=== PATIENT | female | born 1985 | race Two or more races ===

== ENCOUNTER 2018-05-10 18:57 | Observation (INO) | payer MEDICAID, OTHER | END 2018-05-10 20:00 | disposition home or self-care (01) | DRG 566 | LOC: LDRP 18:57 | PROVIDERS: ADMIT Specialist; ATTEND Specialist | DX: O62.9 Abnormality of forces of labor, unspecified (principal); Z3A.35 35 weeks gestation of pregnancy | CPT/HCPCS: 59025; 81002; 82948; 82962; G0378 ==

== ENCOUNTER 2018-05-15 11:05 | Observation (INO) | payer MEDICAID ==
[2018-05-15] MEDS ORDERED: PREN-153 OR (11:19)
== END 2018-05-15 12:35 | disposition home or self-care (01) | DRG 566 ==
LOC: LDRP 11:05
PROVIDERS: ADMIT Specialist; ATTEND Specialist
DX: O26.893 Other specified pregnancy related conditions, third trimester (principal); M54.9 Dorsalgia, unspecified; M79.605 Pain in left leg; R10.2 Pelvic and perineal pain; Z3A.36 36 weeks gestation of pregnancy
CPT/HCPCS: 59025; 81002; G0378

== ENCOUNTER 2018-05-15 12:41 | Emergency (ER) | payer MEDICAID ==
[~2018-05-15] VITALS: Ht 157.5 cm; Wt 90.7 kg
[~2018-05-15 12:41] MED LIST: PREN-153 OR
[2018-05-15 13:48] VITALS: BP 120/87
[2018-05-15] MEDS ORDERED: ACETAMINOPHEN/CODEINE#3 (300/30mg) TAB PO ONE (14:30)
[2018-05-15] MEDS ORDERED: diphenhdrAMINE HCL 50 MG/1 ML VL IM ONE (15:30)
== END 2018-05-15 16:11 | disposition home or self-care (01) ==
LOC: ER 12:41
DX: O26.893 Other specified pregnancy related conditions, third trimester (principal); M54.42 Lumbago with sciatica, left side; Z3A.36 36 weeks gestation of pregnancy; X50.1XXA Overexertion from prolonged static or awkward postures, initial encounter; Y93.01 Activity, walking, marching and hiking; Y92.89 Other specified places as the place of occurrence of the external cause; Y99.8 Other external cause status
CPT/HCPCS: 96372; 99283; J1200

== ENCOUNTER 2018-05-18 13:59 | Observation (INO) | payer MEDICAID ==
[2018-05-18] MEDS ORDERED: LACTATED RINGER'S 1,000 ML IV ONE (17:15)
[2018-05-18 18:15] LABS: Urine Bacteria FEW /hpf (None Seen); Urine Blood Negative /uL (Negative); Urine Mucus FEW (None Seen); Urine WBC 1 /hpf (0 - 5)
[2018-05-18 18:16] LABS: Basophils # (auto) 0 uL; Basophils % (auto) 0.3 % (0.0-2.0); Eosinophils # (auto) 0 uL; Eosinophils % (auto) 0.4 % (0.0-7.0); Hematocrit 34.8 % (36.0-46.0); Lymphocytes # (auto) 2.1 uL; Lymphocytes % (auto) 20.8 % (10.0-50.0); Mean Corpuscular Hemoglobin 31.2 pg (28.0-32.0); Mean Corpuscular Hgb Conc. 34.5 g/dL (32.0-36.0); Mean Corpuscular Volume 90.4 fL (80.0-100.0); Monocytes # (auto) 0.8 uL; Monocytes % (auto) 8.2 % (0.0-12.0); Neutrophils # (auto) 7.2 uL; Neutrophils % (auto) 70.3 % (37.0-80.0); Nucleated Red Blood Cells % 0.1 %; Platelet Count (auto) 290 10^3/uL (140-450); Red Blood Cells 3.85 10^6/uL (4.0-5.20); Red Cell Distribution Width 14.4 % (11.8-14.3); White Blood Cell 10.3 10^3/uL (4.4-10.8)
[2018-05-18 18:30] LABS: Alcohol, Urine < 3.0 mg/dL (0-5); Amphetamine Screen, Urine NEGATIVE (NEGATIVE); Barbiturate Scree,Urine NEGATIVE (NEGATIVE); Benzodiazephine Screen, Urine NEGATIVE (NEGATIVE); Cannabinoid Screen, Urine NEGATIVE (NEGATIVE); Cocaine Screen, Urine NEGATIVE (NEGATIVE); Opiate Scree,Urine NEGATIVE (NEGATIVE); Phencyclidine Screen, Urine NEGATIVE (NEGATIVE)
[2018-05-18 18:30] LABS: Albumin 2.4 g/dL (3.4-5.0); Calcium 8.8 mg/dL (8.5-10.1); Potassium 4.1 mmol/L (3.5-5.1)
[2018-05-18 18:33] LABS: BUN/Creatinine Ratio 15.5; Bilirubin, Total 0.3 mg/dL (0.2-1.0); Uric Acid 3.3 mg/dL (2.6-6.0)
[2018-05-18 18:37] LABS: INR 0.89 (0.9-1.15); Prothrombin Time 9.6 sec (9.27-12.13)
== END 2018-05-18 21:00 | disposition home or self-care (01) | DRG 566 ==
LOC: LDRP 13:59
PROVIDERS: ADMIT Specialist; ATTEND Specialist
DX: O24.419 Gestational diabetes mellitus in pregnancy, unspecified control (principal); Z3A.00 Weeks of gestation of pregnancy not specified
CPT/HCPCS: 36415; 59025; 76818; 80053; 80307; 81001; 81002; 82948; 82962; 84550; 85025; 85610; 85730; 93005; G0378; 96361; 96366

== ENCOUNTER 2018-05-20 08:05 | Observation (INO) | payer MEDICAID ==
[2018-05-20] MEDS ORDERED: LABE100T4 PO (08:52)
== END 2018-05-20 10:35 | disposition home or self-care (01) | DRG 566 ==
LOC: LDRP 08:05
PROVIDERS: ADMIT Specialist; ATTEND Specialist
DX: O24.410 Gestational diabetes mellitus in pregnancy, diet controlled (principal); O26.893 Other specified pregnancy related conditions, third trimester; H53.8 Other visual disturbances; R03.0 Elevated blood-pressure reading, without diagnosis of hypertension; O99.89 Other specified diseases and conditions complicating pregnancy, childbirth and the puerperium; M54.30 Sciatica, unspecified side; Z3A.37 37 weeks gestation of pregnancy
CPT/HCPCS: 59025; 76818; 81002; 82948; 82962; G0378

== ENCOUNTER 2018-05-22 08:20 | Observation (INO) | payer MEDICAID ==
[~2018-05-22 08:20] MED LIST changes: +LABE100T4 PO
[2018-05-22 09:15] LABS: Protein, Urine 17.3 mg/dL (0.0-11.9)
[2018-05-22 09:17] LABS: 24 Hr. Total Protein, Urine 224.9 mg/24 Hr (<149.1)
== END 2018-05-22 09:35 | disposition home or self-care (01) | DRG 566 ==
LOC: LDRP 08:20
PROVIDERS: ADMIT Specialist; ATTEND Specialist
DX: O24.419 Gestational diabetes mellitus in pregnancy, unspecified control (principal); Z3A.37 37 weeks gestation of pregnancy
CPT/HCPCS: 59025; 81002; 82948; 82962; 84156; G0378

== ENCOUNTER 2018-05-24 10:50 | Observation (INO) | payer MEDICAID ==
[~2018-05-24] VITALS: Ht 157.5 cm; Wt 92.5 kg
== END 2018-05-24 12:20 | disposition home or self-care (01) | DRG 566 ==
LOC: LDRP 10:50
PROVIDERS: ADMIT Specialist; ATTEND Specialist
DX: O13.3 Gestational [pregnancy-induced] hypertension without significant proteinuria, third trimester (principal); Z3A.37 37 weeks gestation of pregnancy
CPT/HCPCS: 59025; 76818; 81002; 82948; 82962; G0378

== ENCOUNTER 2018-05-28 09:10 | Observation (INO) | payer MEDICAID ==
[2018-05-28 10:25] LABS: Basophils # (auto) 0 uL; Basophils % (auto) 0.5 % (0.0-2.0); Eosinophils # (auto) 0.1 uL; Eosinophils % (auto) 0.8 % (0.0-7.0); Hematocrit 35.1 % (36.0-46.0); Lymphocytes # (auto) 1.8 uL; Lymphocytes % (auto) 21.6 % (10.0-50.0); Mean Corpuscular Hemoglobin 30.7 pg (28.0-32.0); Mean Corpuscular Hgb Conc. 34.1 g/dL (32.0-36.0); Mean Corpuscular Volume 89.8 fL (80.0-100.0); Monocytes # (auto) 0.5 uL; Monocytes % (auto) 6.2 % (0.0-12.0); Neutrophils # (auto) 5.9 uL; Neutrophils % (auto) 70.9 % (37.0-80.0); Nucleated Red Blood Cells % 0.1 %; Platelet Count (auto) 287 10^3/uL (140-450); Red Blood Cells 3.91 10^6/uL (4.0-5.20); Red Cell Distribution Width 14.4 % (11.8-14.3); White Blood Cell 8.3 10^3/uL (4.4-10.8)
[2018-05-28 10:37] LABS: Albumin 2.5 g/dL (3.4-5.0); Calcium 8.7 mg/dL (8.5-10.1); Potassium 3.8 mmol/L (3.5-5.1)
[2018-05-28 10:39] LABS: BUN/Creatinine Ratio 11.1
[2018-05-28 10:40] LABS: INR 0.87 (0.9-1.15); Partial Thromboplastin Time 26.1 sec (23.78-33.04); Prothrombin Time 9.4 sec (9.27-12.13)
[2018-05-28 11:42] LABS: Urine Bacteria MOD /hpf (None Seen); Urine Blood Negative /uL (Negative); Urine Mucus FEW (None Seen); Urine Specific Gravity 1.021 (1.001-1.035); Urine WBC 23 /hpf (0 - 5)
[2018-05-28 11:52] LABS: Bilirubin, Total 0.3 mg/dL (0.2-1.0); Total Protein 6.2 g/dL (6.4-8.2)
== END 2018-05-28 11:40 | disposition home or self-care (01) | DRG 566 ==
LOC: LDRP 09:10
PROVIDERS: ADMIT Obstetrics & Gynecology; ATTEND Obstetrics & Gynecology
DX: O24.419 Gestational diabetes mellitus in pregnancy, unspecified control (principal); O13.3 Gestational [pregnancy-induced] hypertension without significant proteinuria, third trimester; Z3A.38 38 weeks gestation of pregnancy
CPT/HCPCS: 36415; 59025; 76818; 80053; 81001; 81002; 84550; 85025; 85610; 85730; G0378

== ENCOUNTER 2018-05-30 21:32 | Inpatient (IN) | payer MEDICAID | END 2018-06-01 19:00 | disposition home or self-care (01) | LOC: LDRP 21:32 | PROC: 10E0XZZ Delivery of Products of Conception, External Approach (ICD-10-PCS; principal; ~2018-05-30) | DX: O24.429 Gestational diabetes mellitus in childbirth, unspecified control (principal); Z37.0 Single live birth; Z3A.38 38 weeks gestation of pregnancy ==

== ENCOUNTER → 2018-07-26 | Day surgery (SDC) | payer MEDICAID ==
[~2018-07-26] VITALS: Ht 157.5 cm; Wt 83.0 kg
[~2018-07-26] MED LIST changes: +GLYCOPYRROLATE 0.2 MG/ML 1ML VIAL ONE; +KETOROLAC TROMETH 60MG/2ML VIAL IM ONE; -LABE100T4 PO; +LACTATED RINGER'S 1,000 ML IV SCH; +MEPERIDINE HCL (25 MG/ML) 1ML VIAL ONE; +MIDAZOLAM HCL 1MG/1ML-2 ML VIAL ONE; +NEOSTIGMINE 1 MG/ML INJ (10mg/10ML VIAL) ONE; +ONDANSETRON HCL 4 MG/2 ML VIAL IV PRN; -PREN-153 OR; +PROPOFOL 10 MG/ML 20 ML IV ONE; +ROCURONIUM 10MG/ML 10ML VIAL IV ONE; +SODIUM CHLORIDE LOCK 10 ML ONE; +SUCCINYLCHOLINE CHLORIDE 20 MG/ML 10ML VIAL IV ONE; +ceFAZolin 1GM/50ML 50 ML IV ONE; +diphenhdrAMINE HCL 50 MG/1 ML VL ONE; +fentaNYL CITRATE 100 MCG/2 ML VL ONE
[2018-07-26 11:02] VITALS: BP 139/80
== END | disposition home or self-care (01) ==
LOC: SUR 08:02
PROVIDERS: ATTEND Obstetrics & Gynecology
DX: Z30.2 Encounter for sterilization (principal); E66.9 Obesity, unspecified; Z98.890 Other specified postprocedural states; Z68.33 Body mass index [BMI] 33.0-33.9, adult
CPT/HCPCS: 58671; 86850; 86900; 86901; J0330; J0690; J1200; J1885; J2175; J2250; J2704; J3010